=== PATIENT | male | born 1955 | race Caucasian/White ===

== ENCOUNTER 2023-09-21 06:07 | Day surgery (SDC) | payer OTHER, BC ==
[2023-09-12 16:15] VITALS: BMI 28.7
[2023-09-21] MEDS ORDERED: EPINEPHrine 1:1,000 1,000 MCG/ML ML ONE (07:14)
[2023-09-21] MEDS ORDERED: SUCCINYLCHOLINE CHLORIDE 200 MG/10 ML SYRINGE ONE (07:29)
[2023-09-21] MEDS ORDERED: PROPOFOL 40 ML ONE (07:29)
[2023-09-21] MEDS ORDERED: FENTANYL CITRATE/PF 50 MCG/ML VIAL ONE (07:35)
[2023-09-21] MEDS ORDERED: MIDAZOLAM HCL 2 MG/2 ML SINGLE DOSE VIAL ONE (07:35)
[2023-09-21] MEDS ORDERED: BUPIVACAINE HCL/PF 0.5% (5 MG/ML) 30 ML VIAL IJ ONE (07:35)
[2023-09-21] MEDS ORDERED: DEXAMETHASONE SOD PHOSPHATE 10 MG/1 ML VIAL ONE (07:35)
[2023-09-21] MEDS ORDERED: TRANEXAMIC ACID 1000 MG/10 ML VIAL ONE (08:12)
[2023-09-21] MEDS ORDERED: oxyCODONE HCL 5 MG TABLET PO PRN ×2 (10:37)
[2023-09-21] MEDS ORDERED: LACTATED RINGERS SOLUTION 1,000 ML IV SCH (10:45)
[2023-09-21 12:57] VITALS: TEMP 97.9
[2023-09-21 13:22] VITALS: PULSE 78
[2023-09-21 13:55] VITALS: BP 145/83; RESP 17
== END 2023-09-21 12:20 | disposition home or self-care (01) ==
LOC: FASU 06:07
PROVIDERS: ATTEND Orthopaedic Surgery Sports Medicine
PROC: 0RNK4ZZ Release Left Shoulder Joint, Percutaneous Endoscopic Approach (ICD-10-PCS; principal; 2023-09-21 08:30)
PROC: 0LS44ZZ Reposition Left Upper Arm Tendon, Percutaneous Endoscopic Approach (ICD-10-PCS; 2023-09-21 08:30)
PROC: 0RHK44Z Insertion of Internal Fixation Device into Left Shoulder Joint, Percutaneous Endoscopic Approach (ICD-10-PCS; 2023-09-21 08:30)
DX: M75.122 Complete rotator cuff tear or rupture of left shoulder, not specified as traumatic (principal); M75.42 Impingement syndrome of left shoulder; M75.22 Bicipital tendinitis, left shoulder
CPT/HCPCS: 29826; 29827; 29828; C1713; 82962; 94760; C1763; C1883; J1100